=== PATIENT | male | born 1995 | race Caucasian/White ===

== ENCOUNTER 2024-12-02 11:48 | Emergency (ER) | payer OTHER, SELFPAY ==
[2024-12-02 12:00] VITALS: BP 148/76; PULSE 72; O2SAT 98
[2024-12-02 12:15] VITALS: BMI 17.3
--- NOTE | 2024-12-02 12:18 | MHC.EDTECH ---
patient belongings in [facility] two. one bag. pants t shirt and sweatshirt.
[2024-12-02 12:23] VITALS: BP 105/58; PULSE 55; RESP 14; TEMP 36.6; O2SAT 99
--- NOTE | 2024-12-02 13:17 | ECG_ITS ---
Test Reason : abnormal labs Blood Pressure : */* mmHG Vent. Rate : 44 BPM Atrial Rate : 44 BPM P-R Int : 122 ms QRS Dur : 94 ms QT Int : 434 ms P-R-T Axes : 83 1 56 degrees QTcB Int : 371 ms Marked sinus bradycardia Incomplete right bundle branch block Abnormal ECG No previous ECGs available Referred By: Generic ED Physician Electronically Signed By: William Alberts
[2024-12-02 13:28] LABS: MANUAL DIFF FLAG NO
[2024-12-02 13:33] LABS: Basophils Percent Auto 0.3 % (0-2); Eosinophils Absolute Auto 0.3 X10*3/uL (0.0-0.4); Eosinophils Percent Auto 3.1 % (0-4); Hematocrit 36.1 % (42.0-52.0); Hemoglobin 12.8 g/dl (14.0-18.0); Imm Gran Abs Auto 0.03 X10*3/uL (0.00-0.03); Imm Gran Pct Auto 0.3 % (0.0-0.4); Lymphocytes Percent Auto 22.5 % (20-40); Mean Corpuscular HGB Conc 35.5 g/dl (31.0-36.0); Mean Corpuscular Hemoglobin 31.8 pg (27.0-33.0); Mean Corpuscular Volume 89.6 fL (80.0-98.0); Mean Platelet Volume 10.7 fL (9.4-12.4); Monocytes Absolute Auto 1.1 X10*3/uL (0.1-1.2); Monocytes Percent Auto 12.6 % (2-11); Neutrophils Absolute Auto 5.5 x10*3/uL (2.0-8.3); Neutrophils Percent Auto 61.2 % (45-73); Platelet Count 171 X10*3/uL (160-400); Red Blood Count 4.03 X10*6/uL (4.60-5.80); Red Cell Distribution Width 12.3 % (11.0-16.0)
[2024-12-02 13:53] LABS: Alanine Aminotransferase 42 U/L (0-40); Albumin Level 3.9 g/dL (3.5-5.0); Alkaline Phosphatase 43 U/L (39-117); Anion Gap 10 (12-20); Aspartate Amino Transferase 89 U/L (5-37); Bilirubin Total 0.5 mg/dL (0.0-1.0); Blood Urea Nitrogen 22 mg/dL (9-16); Calcium 8.9 mg/dL (8.4-10.2); Carbon Dioxide 25 mmol/L (22-29); Chloride 107 mmol/L (96-108); Creatinine Clr Calc Pharmacy 71.9; Estimated Glomerular Filt Rate > 60; Glucose Random 91 mg/dL (60-115); Potassium 4.1 mmol/L (3.3-5.1); Sodium 138 mmol/L (135-145); Total Protein 7.2 g/dL (6.5-8.0)
[2024-12-02 13:55] LABS: B Type Natriuretic Peptide 72 pg/mL (<100)
--- OUTSIDE RECORDS SUMMARY | 2024-12-02 14:05 | XMS_ITS | Clinical Summary ---
Author Organization [facility] Address [address] [place] [address] Phone Care Team Providers Care Medical Operations Supervisor Name Role Phone Required, No Pcp/Pcp Not Primary Care Provider U navailable Allergies No known active allergies Active Problems Problem Noted Date Diagnosed Date Paranoid schizophrenia 11/24/2024 Encounters Date Type Department Care Team Description 11/24/2024 6:39 AM EST - 11/25/2024 8:00 AM EST Emergency [facility] - Emergency Department [address] [place] [id number] Charla Ortiz MD Bibro, MD Melanie Jeffery Emily, MD Donahue, MD Belen Patel, Lemuel Hare MD Discharge Disposition: Psychiatric Facility 11/24/2024 Travel from Last 3 Months Social History Tobacco Use Types Packs/Day Years Used Date Smoking Tobacco: Never Assessed Sex and Gender Information Value Date Recorded Sex Assigned at Not on file Legal Sex Male 9:05 AM EDT Gender Identity Not on file Sexual Orientation Not on file Last Filed Vital Signs Vital Sign Reading Time Taken Comments Blood Pressure 110/60 11/25/2024 6:07 AM EST Pulse 60 11/25/2024 6:07 AM EST Temperature 36.6 ??C (97.8 ??F) 11/25/2024 6:07 AM ES T Respiratory Rate 18 11/25/2024 6:07 AM EST Oxygen Saturation 96% 11/25/2024 6:07 AM EST Inhaled Oxygen Concentration - - Weight 74.8 kg (165 lb) 11/24/2024 11:51 AM EST Height 185.4 cm (6' 1 ) 11/24/2024 11:51 AM EST Body Mass Index 21.77 11/24/2024 11:51 AM EST Plan of Treatment Health Maintenance Due Date Last Done Comments [facility] Topic HIV Screening 1995 [facility] Topic Depression Screening 2007 [facility] Topic Tdap Vaccine (1 - Tdap) 2014 [facility] Topic Influenza (Flu) Seasonal (#1) 2024 [facility] Topic Lipid Profile 5 years 09/21/2024 09/21/2019 [facility] Topic Hepatitis C Screening Completed 09/29/2015 [facility] Topic HPV Vaccines Aged Out No longer eligible based on patient's age to complete this topic Procedures Procedure Name Priority Date/Time Associated Diagnosis Comments XR WRIST 3+ VW RIGHT STAT 11/24/2024 10:25 AM EST URINALYSIS WITH REFLEX STAT 11/24/2024 9:38 AM EST URINE DRUGS OF ABUSE SCREEN STAT 11/24/2024 9:38 AM EST URINALYSIS WITH REFLEX STAT 11/24/2024 9:38 AM EST EXTRA URINE CULTURE TUBE STAT 11/24/2024 9:38 AM EST ETHANOL STAT 11/24/2024 9:37 AM EST SALICYLATE LEVEL STAT 11/24/2024 9:37 AM EST ACETAMINOPHEN LEVEL STAT 11/24/2024 9 :37 AM EST COMPREHENSIVE METABOLIC PANEL STAT 11/24/2024 9:37 AM EST CBC WITH AUTO DIFFERENTIAL STAT 11/24/2024 9:37 AM EST LIMITED RESPIRATORY VIRAL PANEL [facility] - COVID/FLU/RSV STAT Add-on 11/24/2024 9:37 AM EST COVID-19 ([facility]) STAT 11/24/2024 9:37 AM EST from Last 3 Months Results * X-ray wrist 3+ views right (11/24/2024 10:25 AM EST) Anatomical Region Laterality Modality Upper Extremities, Wrist Right Compute d Radiography 11/24/2024 9:29 AM EST Impressions 11/24/2024 10:30 AM EST IMPRESSION: No acute fracture, dislocation nor radiopaque foreign body identified. Narrative 11/24/2024 10:30 AM EST Clinical History: Wrist injury with pain and swelling. Four views right wrist were obtained. No acute fracture nor dislocation identified. No radiopaque foreign bodies seen. Bones and joint spaces are unremarkable in appearance. Procedure Note Lonnie Suarez MD - 11/24/2024 Clinical History: Wrist injury with pain and swelling. Four views right wrist were obtained. No acute fracture nor dislocation identified. No radiopaque foreign bodiesseen. Bones and joint spaces are unremarkable in appearance. IMPRESSION: No acute fracture, dislocation nor radiopaque foreign body identified. Fam GIBSON IM XR PROCEDURES Final Result * (ABNORMAL) Urinalysis with reflex (11/24/2024 9:38 AM EST) Color, Urine Colorless Colorless, Yellow 11/24/2024 9:56 AM [facility] Clarity, Urine Clear Clear 11/24/2024 9:56 AM [facility] Specific Carpenter, Urine 1.013 1.002 - 1.030 11/24/2024 9:56 AM [facility] pH, Urine 5.5 5.0 - 8.0 11/24/2024 9:56 AM [facility] Leukocytes, Urine Negative Negative 11/24/2024 9:56 AM [facility] Nitrite, Urine Negative Negative 11/24/2024 9:56 AM [facility] Protein, Urine 1+(A) Negative 11/24/2024 9:56 AM [facility] Glucose, Urine Trace(A) Negative 11/24/2024 9:56 AM [facility] Ketones, Urine 1+(A) Negative 11/24/2024 9:56 AM [facility] Bilirubin, Urine Negative Negative 11/24/2024 9:56 AM [facility] Blood, Urine 2+(A) Negative 11/24/2024 9:56 AM [facility] WBC, Urine 1-2 0-2 /HPF /HPF 11/24/2024 9:56 AM [facility] RBC, Urine 1-3 0-3 /HPF /HPF 11/24/2024 9:56 AM [facility] Squamous Epithelial, Urine None Seen /HPF 11/24/2024 9:56 AM [facility] Bacteria, Urine None Seen None Seen /HPF 11/24/2024 9:56 AM [facility] Mucus, Urine 1+ /HPF 11/24/2024 9:56 AM [facility] Hyaline Casts, Urine 1-2 /LPF 11/24/2024 9:56 AM [facility] Urine (Urine, Void) Non-blood Collection / Unknown 11/24/2024 9:38 AM EST 11/24/2024 9:49 AM [facility] - 11/24/2024 9:56 AM EST Per protocol, no culture performed. For protocol inquiries or add-on testing, please call Infectious Disease at [phone] or [phone]. us Elizabeth Barlow MD LAB URINE ORDERABLES Fin al Result [facility] [address] [place] [address], [place] [phone] * Extra Urine Culture Tube (11/24/2024 9:38 AM EST) Extra Tube 11/24/2024 11:01 AM [facility] Comment:An Extra tube was co llected from this patient. Please follow add on workflow or contact the Laboratory if you wish to place orders on this specimen. Urine (Urine, Void) Non-blood Collection / Unknown 11/24/2024 9:38 AM EST 11/24/2024 9:43 AM EST us Elizabeth Barlow MD LAB MICROBIOLOGY - GENER AL ORDERABLES Final Result [facility] [address] [place] [address], [place] [phone] * (ABNORMAL) Urine drugs of abuse screen (11/24/2024 9:38 AM EST) Pathologist [facility] Amphetamines, Urine Screen None Detected None Detected 11/24/2024 10:17 AM [facility] Barbiturates, Urine Screen None Detected None Detected 11/24/2024 10:17 AM [facility] Benzodiazepines, Urine Screen None Detected None Detected 11/24/2024 10:17 AM [facility] Cocaine, Urine Screen None Detected None Detected 11/24/2024 10:17 AM [facility] Opiates, Urine Screen None Detected None Detected 11/24/2024 10:17 AM [facility] Cannabinoids (THC), Urine Screen Positive(A) None Detected 11/24/2024 10:17 AM [facility] Tricyclic Antidepressants, Urine Screen None Detected None Detected 11/24/2024 10:17 AM [facility] Fentanyl, Urine Screen None Detected None Detected 11/24/2024 10:17 AM [facility] Methadone, Urine Screen None Detected None Detected 11/24/2024 10:17 AM [facility] Oxycodone, Urine Screen None Detected None Detected 11/24/2024 10:17 AM [facility] Buprenorphine, Urine Screen None Detected None Detected 11/24/2024 10:17 AM [facility] Phencyclidine, Urine Screen None Detected None Detected 11/24/2024 10:17 AM [facility] Urine Urine specimen obtained by clean catch procedure / Unknown Non-blood Collection / Unknown 11/24/2024 9:38 AM EST 11/24/2024 9:44 AM [facility] - 11/24/2024 10:17 AM EST This is a screening test for urine drugs of ABUSE only, performed using Lobito Chema analyzer. It is not designed or intended to monitor treatment or assess patient compliance. ??Those purposes are best served by a specific assay for the specific drug being administered. ?? Like any screening test, this drug screen has inherent limitations. ?? A result of NONE DETECTED indicates the absence of the major metabolites of the tested drugs or their presence at a level below the cut-off concentration (see below). ??False negative results may be due to the pharmacokinetics of the drug and/or the timing of the sample relative to the use of the drug in question. ?? A POSITIVE result is a presumptive qualitative positive which indicates that the major metabolites of the tested drugs are likely present at or above their cut- off concentration (see below). ??False positive results may be caused by cross- reacting substances. ??Unconfirmed positive results of this screening test must not be used for non-medical purposes. ?? Cutoffs for Drug Classes: Amphetamines ? 1000 ng/mL Barbiturates ? 200 ng/mL Benzodiazepines ??100 ng/mL Cocaine ?300 ng/mL Opiates ?300 ng/mL TCA ?300 ng/mL THC ?50 ng/mL Fentanyl ?5 ng/mL Methadone ?300 ng/ml Oxycodone ?100 ng/ml Buprenorphine ?5 ng/ml Phencyclidine ? 25 ng/ml us Elizabeth Barlow MD LAB URINE ORDERABLES Fin al Result [facility] [address] [place] [address], * Limited Resp. Viral Panel (11/24/2024 9:37 AM EST) COVID-19 ([facility]) PCR Negative Negative LTT PANTHER ANALYZER-DP H 11/24/2024 3:37 PM [facility] Flu A by PCR Negative Negative LTT PANTHER ANALYZER-DP H 11/24/2024 3:37 PM [facility] Flu B by PCR Negative Negative LTT PANTHER ANALYZER-DP H 11/24/2024 3:37 PM [facility] Respiratory Syncytial Virus PCR Negative Negative LTT PANTHER ANALYZER-DP H 11/24/2024 3:37 PM [facility] Swab (Nasopharynx) Non-blood Collection / Unknown 11/24/2024 9:37 AM EST 11/24/2024 9:45 AM EST Fam GIBSON LAB MICROBIOLOGY - GENERAL ORD ERABLES Final Result [facility] [address] [place] [address], [place] [phone] * COVID-19 ([facility]) (11/24/2024 9:37 AM EST) COVID-19 ([facility]) PCR Negative Negative LTT PANTHER ANALYZER-DP H 11/24/2024 3:37 PM [facility] Swab (Nasopharynx) Non-blood Collection / Unknown 11/24/2024 9:37 AM EST 11/24/2024 9:45 AM EST Elizabeth Barlow MD LAB MICROBIOLOGY - GENER AL ORDERABLES Final Result [facility] [address] [place] [address], [place] [phone] * (ABNORMAL) CBC (11/24/2024 9:37 AM EST) WBC 12.4(H) 4.5 - 10.8 10*3 ??l 11/24/2024 10:06 AM [facility] RBC 4.11(L) 4.70 - 6.10 10*6 ??l 11/24/2024 10:06 AM [facility] Hemoglobin 13.1(L) 14.0 - 18.0 g/dL 11/24/2024 10:06 AM [facility] Hematocrit 38.1(L) 42.0 - 52.0 % 11/24/2024 10:06 AM [facility] MCV 93 80 - 95 fL 11/24/2024 10:06 AM [facility] MCH 31.9 25.4 - 39.0 pg 11/24/2024 10:06 AM [facility] MCHC 34.4 31.0 - 37.0 g/dL 11/24/2024 10:06 AM [facility] RDW 12.6 11.5 - 14.5 % 11/24/2024 10:06 [facility] Platelets 116(L) 150 - 450 10*3 ??l 11/24/2024 10:06 AM [facility] MPV 10.6 7.0 - 11.0 fL 11/24/2024 10:06 [facility] Neutrophils % 81.1(H) 40.0 - 80.0 % 11/24/2024 10:06 AM [facility] Lymphocytes % 5.1(L) 20.0 - 40.0 % 11/24/2024 10:06 [facility] Monocytes % 12.7(H) 2.0 - 10.0 % 11/24/2024 10:06 AM [facility] Eosinophils % 0.1(L) 1.0 - 6.0 % 11/24/2024 10:06 [facility] Basophils % 0.2 0.0 - 1.0 % 11/24/2024 10:06 AM [facility] Immature Granulocyte % 0.8 0.0 - 0.9 % 11/24/2024 10:06 [facility] Neutrophils Absolute 10.03(H) 2.00 - 7.00 K/mm3 11/24/2024 10:06 [facility] Absolute Immature Granulocyte 0.10(H) 0.00 - 0.09 K/mm3 11/24/2024 10:06 [facility] Lymphocytes Absolute 0.63(L) 1.00 - 3.00 K/mm3 11/24/2024 10:06 AM [facility] Monocytes Absolute 1.57(H) 0.20 - 1.00 K/mm3 11/24/2024 10:06 AM [facility] Eosinophils Absolute 0.01 0.00 - 0.50 K/mm3 11/24/2024 10:06 AM [facility] Basophils Absolute 0.02 0.00 - 0.10 K/mm3 11/24/2024 10:06 AM [facility] Blood Venous blood / Unknown Venipuncture / Unknown 11/24/2024 9:37 AM EST 11/24/2024 9:50 AM EST Elizabeth Barlow MD LAB BLOOD ORDERABLES Fin al Result Performing Organization Address City/[facility]/ZIP Co de Phone Number [facility] [address] [place] [address], * Ethanol (11/24/2024 9:37 AM EST) Ethanol <=10 0 - 10 mg/dL 11/24/2024 10:18 AM [facility] Comment:NONE DETECTED: Resul t <10 should be interpreted as NONE DETECTED. Blood Venous blood / Unknown Venipuncture / Unknown 11/24/2024 9:37 AM EST 11/24/2024 9:44 AM EST Elizabeth Barlow MD LAB BLOOD ORDERABLES Fin al Result Performing Organization Address City/[facility]/ZIP Co de Phone Number [facility] [address] [place] [address], [place] [phone] * Acetaminophen level (11/24/2024 9:37 AM EST) Acetaminophen Level <5.1 <15.0 ug/mL 11/24/2024 10:18 AM [facility] Blood Venous blood / Unknown Venipuncture / Unknown 11/24/2024 9:37 AM EST 11/24/2024 9:44 AM EST Elizabeth Barlow MD LAB BLOOD ORDERABLES Fin al Result [facility] [address] [place] [address], [place] [phone] * Salicylate level (11/24/2024 9:37 AM EST) Salicylate Level <=3.0 3.0 - 30.0 mg/dL 11/24/2024 10:18 AM [facility] Blood Venous blood / Unknown Venipuncture / Unknown 11/24/2024 9:37 AM EST 11/24/2024 9:44 AM EST Elizabeth Barlow MD LAB BLOOD ORDERABLES Fin al Result [facility] [address] [place] [address], [place] [phone] * (ABNORMAL) CMP (11/24/2024 9:37 AM EST) Glucose 100 70 - 100 mg/dL 11/24/2024 10:12 AM [facility] BUN 12 6 - 19 mg/dL 11/24/2024 10:12 AM [facility] Creatinine 1.4(H) 0.4 - 1.2 mg/dL 11/24/2024 10:12 AM [facility] eGFR >60.00 >60.00 mL/min/1.7 3m*2 11/24/2024 10:12 AM [facility] Sodium 136 135 - 145 mmol/L 11/24/2024 10:12 AM [facility] Potassium 4.0 3.4 - 5.1 mmol/L 11/24/2024 10:12 AM [facility] Chloride 102 98 - 109 mmol/L 11/24/2024 10:12 AM [facility] CO2 20(L) 24 - 32 mmol/L 11/24/2024 10:12 AM [facility] Anion Gap 14(H) 6 - 12 mmol/L 11/24/2024 10:12 AM [facility] Calcium 8.6 8.5 - 10.5 mg/dL 11/24/2024 10:12 AM [facility] Total Bilirubin 0.2 0.2 - 1.2 mg/dL 11/24/2024 10:12 AM [facility] Alkaline Phosphatase 50 40 - 129 U/L 11/24/2024 10:12 AM [facility] ALT (SGPT) 21 0 - 40 U/L 11/24/2024 10:12 AM [facility] AST 32 0 - 37 U/L 11/24/2024 10:12 AM [facility] Total Protein 7.0 6.0 - 8.5 g/dL 11/24/2024 10:12 AM [facility] Albumin 4.4 3.3 - 5.2 g/dL 11/24/2024 10:12 AM [facility] Blood Venous blood / Unknown Venipuncture / Unknown 11/24/2024 9:37 AM EST 11/24/2024 9:44 AM EST us Elizabeth Barlow MD LAB BLOOD ORDERABLES Fin al Result [facility] [address] [place] [address], from Last 3 Months Insurance [facility] Care Teams Medical Operations Supervisor Relationship Specialty Start Date End Date Required, No Pcp/Pcp Not [address] [place] [address] PCP - General Independent Film Maker 11/24/24
--- OUTSIDE RECORDS SUMMARY | 2024-12-02 14:05 | XMS_ITS | Clinical Summary ---
Author Organization [facility] Address [address] [place] [address] [address] Care Team Providers Care Chrome Worker Name Role Phone Poc, Not Required Pcp Or Unavailable Unavail able Poc, Not Assigned Pcp Or Primary Care Provider U navailable Allergies No known active allergies Medications No known medications Active Problems Problem Noted Date Diagnosed Date Genital warts 09/29/2015 Overview (06/18/2016): S/p cryo, several applications, and using aldara Insomnia 12/07/2014 Overview (09/27/2020): 09/27/2020 - improved Former smoker 12/07/2014 Overview (09/21/2019): Still not smoking 09/21/2019 Since age 19, 3/4 ppd x 2 years Quit Jun 18, 2016 Anxiety 12/07/2014 Overview (09/27/2020): 09/27/2020 - stable, feels he is doing well, occasional stress, I don't need any medication 09/21/2019 - stable, and no longer with significant anger issues,and no longer needing therapy, doing Medical Marijuana Admits to anger issues as a kid No longer seeing [facility], Therapist, and a Psych, since about 2011 - worked up for ADD and Depression and Anxiety and testing in January 2015. - denies depressive symptoms - has cut himself and burned himself in the past because I just liked doing it, not because I was sad or depressed last was 2011 - currently denies SI/HI Resolved Problems Problem Noted Date Diagnosed Date Resolved Date Irritable 12/07/2014 08/05/2017 Immunizations Name Administration Dates Next Due TdaP 09/27/2020 Surgical History Surgery Date Site/Laterality Comments THORACOTOMY age 4; Pneumonia Family History Medical History Relation Comments No significant medical history Father Cancer - lung Maternal Grandfather asbestos an d smoking Breast CA Maternal Grandmother No significant medical history Mother No significant medical history Sister CAD/PVD - early Neg HX Cancer - colon Neg HX Cancer - prostate Neg HX Diabetes - type II Neg HX Relation Status Comments Father Alive Maternal Grandfather Maternal Grandmother Alive Mother Alive Sister Alive Social History Tobacco Use Types Packs/Day Years Used Date Smoking Tobacco: Former Cigarettes 0.8 3 Smokeless Tobacco: Never Tobacco Cessation:Counseling Given: Yes Comments:.5ppd Alcohol Use Standard Drinks/Week Comments Yes 0 (1 standard drink = 0.6 oz pur e alcohol) denies problems Sex and Gender Information Value Date Recorded Sex Assigned at Not on file Legal Sex Male 12:28 PM EST Gender Identity Not on file Sexual Orientation Not on file Occupation Industry Job Start Date Job End Date [employer] Not on file Not on file Not on file [employer] Not on file Not on file Not on fi le out of work due to pandemic Not on file Not on file Not on file Obstetrics History Last Filed Vital Signs Vital Sign Reading Time Taken Comments Blood Pressure 114/72 09/27/2020 9:04 AM EST Pulse 85 09/27/2020 9:04 AM EST Temperature 36.5 ??C (97.7 ??F) 09/27/2020 9:04 AM ES T Respiratory Rate - - Oxygen Saturation 98% 09/27/2020 9:04 AM EST Inhaled Oxygen Concentration - - Weight 66.2 kg (146 lb) 09/27/2020 9:04 AM EST Height 188 cm (6' 2 ) 09/27/2020 9:04 AM EST Body Mass Index 18.75 09/27/2020 9:04 AM EST Plan of Treatment Health Maintenance Due Date Last Done Comments HEP B INITIAL SCREENING 2013 HEPATITIS B VACCINE (1 of 3 - 19+ 3-dose series) 2014 PERIODIC HEALTH REVIEW 08/05/2020 08/05/2017 HEP C SCREENING 09/29/2020 09/29/2015 COVID-19 Vaccine (2023-2 5 season) 2024 LIPID SCREENING 09/21/2024 09/21/2019 DTAP/TDAP/TD VACCINE (2 - Td or Tdap) 09/27/2030 09/27/2020 HIV SCREENING Completed 09/29/2015 FLU SEASONAL Discontinued HAEMOPHILUS INFLUENZA VACCINE Aged Out No longer eligible based on patient's age to complete this topic HEPATITIS A VACCINE Aged Out No longe r eligible based on patient's age to complete this topic PNEUMOCOCCAL VACCINE(S) Aged Out No l onger eligible based on patient's age to complete this topic POLIO VACCINE Aged Out No longer elig ible based on patient's age to complete this topic RSV Vaccine //toddler Aged Out No longer eligible based on patient's age to complete this topic Procedures Procedure Name Priority Date/Time Associated Diagnosis Comments LIPID PROFILE Routine 09/21/2019 10:33 AM EST Annual physical exam HEPATITIS C ANTIBODY Routine 09/29/2015 9:29 AM EST Special screening examination for viral disease HIV 1/2 ANTIGEN / ANTIBODY 4TH GENERATION W/REFLEX Routine 09/29/2015 9:29 AM EST Screening for HIV without presence of risk factors Special screening examination for viral disease Screen for STD (sexually transmitted disease) from Last 3 Months or Most Recently Relevant to Health Maintenance Results * LIPID PROFILE (09/21/2019 10:33 AM EST) CHOLESTEROL 177 <=199 mg/dL 09/21/2019 2:14 PM EST [facility] HDL 62 >=41 mg/dL 09/21/2019 2:14 PM EST [facility] CHOL/HDL RATIO 2.9 <=4.9 09/21/2019 2:14 PM EST [facility] LDL 101.6 <=130 mg/dL 09/21/2019 2:14 PM EST [facility] TRIGLYCERIDES 67 <=149 mg/dL 09/21/2019 2:14 PM EST [facility] FASTING STATUS Random 09/21/2019 2:14 PM [facility] OF PATHOLOG[facility] AND LAB MEDICINE Blood (Blood, Venous) Venipuncture / Unknown 09/21/2019 10:33 AM EST 09/21/2019 10:33 AM EST us Rajesh Liu GENERAL LAB Final Result Performing Organization Address City/[facility] Co de Phone Number [facility] [address] [place] [address] * HIV 1/2 ANTIGEN / ANTIBODY 4TH GENERATION W/REFLEX (09/29/2015 9:29 AM EST) [facility] HIV AG/AB 4th GENERATION Non-React thien Non-React thien [facility] Comment: A non-reactive HIV Ag/Ab result does not exclude HIV infection since the time frame for seroconversion is variable. If acute HIV infection is suspected, repeat testing or an HIV RNA test is recommended. The assay performance has not been clinically validated in patients less than two years old. Venous Draw 09/29/2015 9:29 AM EST 09/29/2015 2:13 PM EST us Rajesh Liu GENERAL LAB Final Result Performing Organization Address [facility] Co de Phone Number [facility] [address] [place] [address] * HEPATITIS C ANTIBODY (09/29/2015 9:29 AM EST) [facility] HEPATITIS C ANTIBODY 0.06 <0.80 [facility] Comment: Negative 0-0.79 Index Value (IV) Negative Venous Draw 09/29/2015 9:29 AM EST 09/29/2015 2:01 PM EST us Rajesh Liu GENERAL LAB Final Result Performing Organization Address City/[facility] Co de Phone Number [facility] [address] [place] [address] from Last 3 Months or Most Recently Relevant to Health Maintenance Care Teams Chrome Worker Relationship Specialty Start Date End Date Poc, Not Required Pcp Or PCP - Payer 12/02/14 Poc, Not Assigned Pcp Or PCP - General 10/18/20
--- OUTSIDE RECORDS SUMMARY | 2024-12-02 14:05 | XMS_ITS | Encounter Summary ---
Author Organization [facility] Address [address] [place] [address] Phone Care Team Providers Care Counter Intelligence Name Role Phone Required, No Pcp/Pcp Not Primary Care Provider U gunnar Encounter Details Date Type Department Care Team (Latest Contact Info) Description 11/24/2024 Travel Social History Tobacco Use Types Packs/Day Years Used Date Smoking Tobacco: Never Assessed Sex and Gender Information Value Date Recorded Sex Assigned at Not on file Legal Sex Male 9:05 AM EDT Gender Identity Not on file Sexual Orientation Not on file documented as of this encounter Plan of Treatment Not on file documented as of this encounter Visit Diagnoses Not on filedocumented in this encounter Additional Health Concerns Infection Onset Date Last Indicated Resolved Time Covid Possible 11/24/2024 11/24/2024 11/24/2024 3: 37 PM EST Covid/Flu/RSV Rule-Out 11/24/2024 11/24/202411/24 3:37 PM EST documented as of this encounter Care Teams Counter Intelligence Relationship Specialty Start Date End Date Required, No Pcp/Pcp Not [address] [place] [address] PCP - General Seat Maker 11/24/24 documented as of this encounter
--- OUTSIDE RECORDS SUMMARY | 2024-12-02 14:05 | XMS_ITS | Encounter Summary ---
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 [facility] Immature Granulocyte % 0.8 0.0 - 0.9 % 11/24/2024 10:06 AM [facility] Neutrophils Absolute 10.03(H) 2.00 - 7.00 K/mm3 11/24/2024 10:06 [facility] Absolute Immature Granulocyte 0.10(H) 0.00 - 0.09 K/mm3 11/24/2024 10:06 AM [facility] Lymphocytes Absolute 0.63(L) 1.00 - 3.00 K/mm3 11/24/2024 10:06 AM [facility] Monocytes Absolute 1.57(H) 0.20 - 1.00 K/mm3 11/24/2024 10:06 AM [facility] Eosinophils Absolute 0.01 0.00 - 0.50 K/mm3 11/24/2024 10:06 AM [facility] Basophils Absolute 0.02 0.00 - 0.10 K/mm3 11/24/2024 10:06 AM [facility] Blood Venous blood / Unknown Venipuncture / Unknown 11/24/2024 9:37 AM EST 11/24/2024 9:50 AM EST Elizabeth Barlow MD LAB BLOOD ORDERABLES Fin al Result [facility] [address] [place] [address]. [place] [address], documented in this encounter Visit Diagnoses Diagnosis Paranoid schizophrenia (CMS/HCC) Paranoid schizophrenia, unspecified condition documented in this encounter Active and Recently Administered Medications Additional Health Concerns Infection Onset Date Last Indicated Resolved Time Covid Possible 11/24/2024 11/24/2024 11/24/2024 3: 37 PM EST Covid/Flu/RSV Rule-Out 11/24/2024 11/24/202411/24 3:37 PM EST documented as of this encounter Care Teams Machine Quilt Stuffer Relationship Specialty Start Date End Date Required, No Pcp/Pcp Not [address] [place] [address] PCP - General Manager Clinical Research 11/24/24 documented as of this encounter
[2024-12-02 14:13] VITALS: PULSE 42; RESP 12; O2SAT 99
[2024-12-02] MEDS: 0.9 % Sodium Chloride 1,000 ML 999 ML IV (14:33)
[2024-12-02 15:37] VITALS: BP 133/85; PULSE 48; RESP 16; TEMP 36.8; O2SAT 100
--- NOTE | 2024-12-02 15:58 | ED_ITS ---
HPI - Recheck/Abnormal Lab/Rx General Chief Complaint: Recheck/Abnormal Lab/Rx Stated Complaint: ABN LABS FROM [facility] ON SEC 21 PER EMS Time Seen by Provider: 12/02/24 14:23 Source: patient Limitations: no limitations History of Present Illness ED Provider: Haven Cuello PA-C HPI narrative: 29-year-old male presents with lab abnormalities. Patient is coming from [facility], he has been there for a week. He had routine labs drawn, was found to have concerned for acute kidney injury. Patient has no symptoms at this time. Related Data Allergies Allergy/AdvReac Type Severity Reaction Status Date / Time No Known Allergies Allergy Verified 12/02/24 12:17 Review of Systems 2 Review of Systems: Yes all other systems are reviewed and are negative Constitutional: Constitutional: Denies fatigue and Denies fever(s) Cardiovascular: Cardiovascular: Denies chest pain and Denies dyspnea Respiratory: Respiratory: Denies dyspnea Gastrointestinal: Gastrointestinal: Denies abdominal pain, Denies nausea and Denies vomiting Endocrine: Endocrine: Denies fatigue [facility], [facility] Past Medical History Attestation statement: The following information was validated with the patient. Social History Social History Smoked in Last 30 Days: No Use of substances other than those prescribed or required for medical reasons: Yes Substance Use Type: Marijuana Substance Use Frequency: Daily Last Used Substance: Weeks (ago) Advance Directives: No Advance Directives Information Provided: Yes Do you have a plan to hurt others: No Plan Physical Exam 2 Vital Signs: Vital Signs: Last Vital Signs Temp 98.2 F 12/02/24 15:37 Pulse 48 L 12/02/24 15:37 Resp 16 12/02/24 15:37 BP 133/85 12/02/24 15:37 Pulse Ox 100 12/02/24 15:37 O2 Del Method Room Air 12/02/24 15:37 BMI result Body Mass Index 17.3 Const: Other: Alert Orientation/consciousness: patient oriented x3 Resp: Effort & Inspection: normal respiratory effort Cardio: Other: Normal peripheral perfusion Skin: Other: Warm dry no rash Neuro: General: patient oriented x3, gait normal, no focal motor deficits and CN's II-XI intact bilaterally Psych: Other: Cooperative Medications Administered Discontinued Medications Generic Name Dose Route Start Last Admin Trade Name Freq PRN Reason Stop Dose Admin Sodium Chloride 1,000 mls @ 999 mls/hr 12/02/24 14:30 12/02/24 14:33 Ns IV 12/02/24 15:30 999 mls/hr .[id number] BRUCE Administration Medical Decision Making Medical Decision Making MDM Narrative: 29-year-old male presents with lab abnormalities. Patient is coming from [facility], he has been there for a week. He had routine labs drawn, was found to have concerned for acute kidney injury. Patient has no symptoms at this time. No relevant chronic issues History: Per patient I have considered the following differential diagnoses: Dehydration, electrolyte abnormality, acute kidney injury, lab error Plan: The facility reports that the patient's creatinine was 6.18 and that is B1 was 84, I suspect lab error. The patient's BUN is 22 and his creatinine is 1.24 he received fluid, I have independently reviewed the following tests: Labs: No leukocytosis, not anemic, no electrolyte abnormality, BUN 22 creatinine 1.24 Lab Data 12/02/24 13:25 12/02/24 13:25 Labs: Lab Results 12/02/24 12/02/24 Range/Units 13:25 13:26 WBC 9.0 (4.8-10.8) X10*3/uL RBC 4.03 L (4.60-5.80) X10*6/uL Hgb 12.8 L (14.0-18.0) g/dl Hct 36.1 L (42.0-52.0) % MCV 89.6 (80.0-98.0) fL MCH 31.8 (27.0-33.0) pg MCHC 35.5 (31.0-36.0) g/dl RDW 12.3 (11.0-16.0) % Plt Count 171 (160-400) X10*3/uL MPV 10.7 (9.4-12.4) fL Immature Gran % (Auto) 0.3 (0.0-0.4) % Neut % (Auto) 61.2 (45-73) % Lymph % (Auto) 22.5 (20-40) % [place] % (Auto) 12.6 H (2-11) % Eos % (Auto) 3.1 (0-4) % Baso % (Auto) 0.3 (0-2) % Lymph # (Auto) 2.0 (1.2-4.9) X10*3/uL [place] # (Auto) 1.1 (0.1-1.2) X10*3/uL Eos # (Auto) 0.3 (0.0-0.4) X10*3/uL Baso # (Auto) 0.0 (0.0-0.2) X10*3/uL Abs Immat Gran (auto) 0.03 (0.00-0.03) X10*3/uL Absolute Neuts (auto) 5.5 (2.0-8.3) x10*3/uL Absolute Nucleated RBC 0.000 (0.0-0.012) X10*3/uL Nucleated RBC % (auto) 0.0 (0.0-0.2) /100WBC Sodium 138 (135-145) mmol/L Potassium 4.1 (3.3-5.1) mmol/L Chloride 107 (96-108) mmol/L Carbon Dioxide 25 (22-29) mmol/L Anion Gap 10 L (12-20) BUN 22 H (9-16) mg/dL Creatinine 1.24 (0.5-1.4) mg/dL Estim Creat Clear Calc 71.9 Estimated GFR > 60 Random Glucose 91 (60-115) mg/dL Calcium 8.9 (8.4-10.2) mg/dL Total Bilirubin 0.5 (0.0-1.0) mg/dL AST 89 H (5-37) U/L ALT 42 H (0-40) U/L Alkaline Phosphatase 43 (39-117) U/L B-Natriuretic Peptide 72 (<100) pg/mL Total Protein 7.2 (6.5-8.0) g/dL Albumin 3.9 (3.5-5.0) g/dL Discharge Plan Discharge Clinical Impression: Abnormal laboratory test Patient Disposition: [facility] Additional Instructions: I suspect that there was a laboratory error when your labs were drawn at the outside facility. Your kidney function is normal per our scale; creatinine 1.24, BUN 22. You did receive IV fluid hydration. Follow up with your primary care provider. Print Language: Chinese
== END 2024-12-03 07:11 ==
PROVIDERS: Emergency Provider Emergency Medicine
DX: R94.4 Abnormal results of kidney function studies (principal)
CPT/HCPCS: 36415; 80053; 83880; 85025; 93005; 99284

== ENCOUNTER → 2024-12-02 13:17 | Outpatient (BNV) | payer OTHER, SELFPAY | PROVIDERS: Emergency Provider Emergency Medicine; Visit Provider Internal Medicine Cardiovascular Disease | DX: I45.10 Unspecified right bundle-branch block (principal); R00.1 Bradycardia, unspecified | CPT/HCPCS: 93010 ==